=== PATIENT | female | born 1960 | race African-American/Black ===

== ENCOUNTER 2016-11-25 15:03 | Inpatient (IN) | payer OTHER ==
[~2016-11-25] VITALS: Ht 167.6 cm; Wt 61.2 kg
[2016-11-25 20:21] LABS: BASOPHILS % 0.8 % (0.0-2.0); EOSINOPHILS % 2.2 % (0.0-5.0); HEMATOCRIT. 37.8 % (36.0-48.0); HEMOGLOBIN. 12.8 g/dL (12.0-16.0); LYMPHOCYTES % 32.4 % (20.0-50.0); MEAN CORPUSCULAR HEMOGLOBIN 33.3 pg (28.0-32.0); MEAN CORPUSCULAR VOLUME 98.7 fL (81.0-99.0); MONOCYTES % 9.7 % (2.0-8.0); NEUTROPHILS % 54.9 % (40.0-76.0); PLATELET 112 x1000/uL (130-400); RED BLOOD CELL COUNT 3.83 mill/uL (4.2-5.4); RED CELL DISTRIBUTION WIDTH 14.2 % (11.6-14.6)
[2016-11-25 20:27] LABS: CHLORIDE 111 mEq/L (98-107)
[2016-11-25 20:28] LABS: CLARITY URINE CLOUDY (CLEAR); COLOR URINE DARK YELLOW (YELLOW); GLUCOSE URINE NEGATIVE (NEGATIVE); KETONES URINE NEGATIVE (NEGATIVE); LEUKOCYTE ESTERASE URINE 3+ (NEGATIVE); NITRITE URINE NEGATIVE (NEGATIVE); OCCULT BLOOD URINE NEGATIVE (NEGATIVE); PH URINE 6.5 (4.5-8.0); PROTEIN URINE TRACE (NEGATIVE); SPECIFIC GRAVITY URINE 1.022 (1.005-1.030)
[2016-11-25 20:36] LABS: CARBON DIOXIDE 24 mEq/L (21-32); ETHANOL BLOOD 196 mg/dL
[2016-11-25 20:39] LABS: *AMPHETAMINES SCREEN URINE NEGATIVE (NEGATIVE); *BARBITURATES SCREEN URINE NEGATIVE (NEGATIVE); *BENZODIAZEPINES SCREEN URINE NEGATIVE (NEGATIVE); *COCAINE SCREEN URINE NEGATIVE (NEGATIVE); CANNABINOID URINE SCREEN PRESUMTIVE POSITIVE (NEGATIVE); METHADONE URINE SCREEN NEGATIVE (NEGATIVE); OPIATES URINE SCREEN NEGATIVE (NEGATIVE); PHENCYCLIDINE URINE SCREEN NEGATIVE (NEGATIVE)
[2016-11-25] MEDS ORDERED: CEFTRIAXONE 1 G PREMIX 50 ML IV ONE (23:15)
[2016-11-26] MEDS: LORAZEPAM 2MG/ML CPJ IV NR ×2 (05:23→06:30)
[2016-11-26] MEDS ORDERED: FOLIC ACID 1 MG, THIAMINE HCL 100 MG, MVI, ADULT NO.1 10 ML in DEXTROSE 5% WATER 1,000 ML IV ONE ×8 (10:00→11:45)
[2016-11-26] MEDS ORDERED: SODIUM CHLORIDE 0.9% 1,000 ML IV ONE (10:00)
[2016-11-26] MEDS ORDERED: METRONIDAZOLE 500MG TABLET PO ONE (10:15)
[2016-11-26 10:33] LABS: AMMONIA 77 uMol/L (<32)
[2016-11-26] MEDS ORDERED: IPRATROPIUM/ALBUTEROL 0.5-3(2.5)MG/3ML NEB INH PRN (13:45)
[2016-11-26] MEDS ORDERED: MAGNESIUM/ALUMINUM HYDROXIDE/SIMETHICONE 30ML UDC PO PRN (13:45)
[2016-11-26] MEDS ORDERED: ONDANSETRON HCL 4MG/2ML VIAL IV PRN (13:45)
[2016-11-26 14:59] LABS: CREATINE KINASE 91 IU/L (26-192); CREATINE KINASE MB FRACTION 1.8 ng/mL (0.5-3.6); TROPONIN I < 0.02 ng/mL (0.00-0.04)
[2016-11-26 15:33] VITALS: BP 173/113
[2016-11-26] MEDS ORDERED: ROCEPHIN IVPB XX SCH (16:30)
[2016-11-26] MEDS: SODIUM CHLORIDE 0.9% 1,000 ML IV SCH (18:06)
[2016-11-26 20:00] VITALS: BP 166/112
[2016-11-26] MEDS: ACETAMINOPHEN 325MG TABLET PO PRN (20:21)
[2016-11-26] MEDS: CLONIDINE 0.1MG TABLET PO PRN (20:22)
[2016-11-26] MEDS: CHLORDIAZEPOXIDE 25MG CAPSULE PO SCH (21:33)
[2016-11-26 23:36] LABS: CREATINE KINASE 90 IU/L (26-192); CREATINE KINASE MB FRACTION 1.3 ng/mL (0.5-3.6); TROPONIN I < 0.02 ng/mL (0.00-0.04)
[2016-11-27] VITALS: BP 144/98
[2016-11-27] MEDS ORDERED: CEFTRIAXONE 1 G PREMIX 50 ML IV SCH
[2016-11-27 04:00] VITALS: BP 138/89
[2016-11-27] MEDS: CHLORDIAZEPOXIDE 25MG CAPSULE PO SCH ×3 (06:04→21:18)
[2016-11-27] MEDS: SODIUM CHLORIDE 0.9% 1,000 ML IV SCH ×2 (06:17→21:04)
[2016-11-27 07:11] LABS: HEMATOCRIT. 31.5 % (36.0-48.0); HEMOGLOBIN. 10.8 g/dL (12.0-16.0); MEAN CORPUSCULAR HEMOGLOBIN 33.5 pg (28.0-32.0); MEAN CORPUSCULAR VOLUME 97.9 fL (81.0-99.0); MEAN PLATELET VOLUME 10.6 fl (7.4-10.4); PLATELET 67 x1000/uL (130-400); RED BLOOD CELL COUNT 3.22 mill/uL (4.2-5.4); RED CELL DISTRIBUTION WIDTH 13.7 % (11.6-14.6)
[2016-11-27 07:45] LABS: CARBON DIOXIDE 25 mEq/L (21-32); CHLORIDE 104 mEq/L (98-107); HDL CHOLESTEROL 39 mg/dL (40-59); LDL CHOLESTEROL 34 mg/dL (5-100)
[2016-11-27] MEDS: THIAMINE HCL 100MG TABLET PO SCH (08:14)
[2016-11-27] MEDS: MULTIVITAMINS,THER W-MINERALS TABLET PO SCH (08:14)
[2016-11-27] MEDS: FOLIC ACID 1MG TABLET PO SCH (08:14)
[2016-11-27] MEDS: CLONIDINE 0.1MG TABLET PO PRN (08:15)
[2016-11-27 08:30] VITALS: BP 167/107
[2016-11-27] MEDS ORDERED: POTASSIUM CHLORIDE 20MEQ TABLET SR PO SCH ×2 (08:45→12:45)
[2016-11-27 08:54] LABS: PLATELET ESTIMATE DECREASED
[2016-11-27] MEDS: ACETAMINOPHEN 325MG TABLET PO PRN (09:07)
[2016-11-27] MEDS ORDERED: MAGNESIUM 2 G PREMIX 50 ML IV SCH (11:00)
[2016-11-27 12:28] VITALS: BP 149/68
[2016-11-27] MEDS ORDERED: SODIUM CHLORIDE 0.9% 10ML VIAL ONE (13:04)
[2016-11-27] MEDS ORDERED: IOHEXOL-300 100 ML BOTTLE ONE (13:04)
[2016-11-27 16:35] VITALS: BP 124/84
[2016-11-27 20:00] VITALS: BP 130/85
[2016-11-27] MEDS: CEFTRIAXONE 1 G PREMIX 50 ML IV SCH (21:10)
[2016-11-27 21:11] LABS: HAPTOGLOBIN 31 mg/dL (30-200); TOTAL IRON BINDING CAPACITY 314 ug/dL (250-450)
[2016-11-27 21:19] LABS: FERRITIN 159 ng/mL (10-291)
[2016-11-27 21:20] LABS: CARCINO EMBRYONIC ANTIGEN 3.3 ng/ml
[2016-11-27 21:31] LABS: HEPATITIS B SURFACE ANTIGEN NEGATIVE
[2016-11-27 21:34] LABS: VITAMIN B12 SERUM 970 pg/mL (211-911)
[2016-11-27 21:36] LABS: FOLIC ACID (FOLATE) SERUM > 20.00 ng/mL (>5.38)
[2016-11-27 21:59] LABS: HEPATITIS B CORE AB IGM NEGATIVE
[2016-11-27 22:00] LABS: HEPATITIS A AB IGM NEGATIVE (NEGATIVE)
[2016-11-28] VITALS: BP 130/77
[2016-11-28 04:00] VITALS: BP 148/82
[2016-11-28] MEDS: CHLORDIAZEPOXIDE 25MG CAPSULE PO SCH ×3 (06:00→22:00)
[2016-11-28] MEDS: CLONIDINE 0.1MG TABLET PO PRN (07:55)
[2016-11-28] MEDS: FOLIC ACID 1MG TABLET PO SCH (07:55)
[2016-11-28] MEDS: MULTIVITAMINS,THER W-MINERALS TABLET PO SCH (07:55)
[2016-11-28] MEDS: THIAMINE HCL 100MG TABLET PO SCH (07:55)
[2016-11-28] MEDS: SODIUM CHLORIDE 0.9% 1,000 ML IV SCH ×2 (07:59→21:41)
[2016-11-28 08:00] VITALS: BP 147/110
[2016-11-28 12:00] VITALS: BP 148/88
[2016-11-28 12:12] LABS: BASOPHILS % 0.4 % (0.0-2.0); EOSINOPHILS % 2.7 % (0.0-5.0); HEMATOCRIT. 31.8 % (36.0-48.0); HEMOGLOBIN. 10.8 g/dL (12.0-16.0); LYMPHOCYTES % 25.9 % (20.0-50.0); MEAN CORPUSCULAR HEMOGLOBIN 33.5 pg (28.0-32.0); MEAN CORPUSCULAR VOLUME 98.5 fL (81.0-99.0); MEAN PLATELET VOLUME 9.9 fl (7.4-10.4); MONOCYTES % 13.2 % (2.0-8.0); NEUTROPHILS % 57.8 % (40.0-76.0); PLATELET 61 x1000/uL (130-400); RED BLOOD CELL COUNT 3.23 mill/uL (4.2-5.4); RED CELL DISTRIBUTION WIDTH 13.9 % (11.6-14.6)
[2016-11-28 12:40] LABS: CARBON DIOXIDE 26 mEq/L (21-32); CHLORIDE 109 mEq/L (98-107)
[2016-11-28] MEDS: ACETAMINOPHEN 325MG TABLET PO PRN (13:37)
[2016-11-28 20:00] VITALS: BP 135/84
[2016-11-28] MEDS ORDERED: POTASSIUM CHLORIDE 20MEQ TABLET SR PO NR (20:00)
[2016-11-28] MEDS: CEFTRIAXONE 1 G PREMIX 50 ML IV SCH (21:53)
[2016-11-29] VITALS: BP 151/104
[2016-11-29] MEDS: CLONIDINE 0.1MG TABLET PO PRN (01:46)
[2016-11-29 04:00] VITALS: BP 130/83
[2016-11-29] MEDS: CHLORDIAZEPOXIDE 25MG CAPSULE PO SCH ×3 (05:21→22:00)
[2016-11-29 06:48] LABS: CARBON DIOXIDE 22 mEq/L (21-32); CHLORIDE 109 mEq/L (98-107)
[2016-11-29 07:05] LABS: BASOPHILS % 0.4 % (0.0-2.0); HEMATOCRIT. 31.7 % (36.0-48.0); HEMOGLOBIN. 10.6 g/dL (12.0-16.0); LYMPHOCYTES % 27.1 % (20.0-50.0); MEAN CORPUSCULAR HEMOGLOBIN 33.5 pg (28.0-32.0); MEAN CORPUSCULAR VOLUME 100.1 fL (81.0-99.0); MONOCYTES % 12.7 % (2.0-8.0); NEUTROPHILS % 56.8 % (40.0-76.0); PLATELET 63 x1000/uL (130-400); RED BLOOD CELL COUNT 3.16 mill/uL (4.2-5.4)
[2016-11-29 08:00] VITALS: BP 128/89
[2016-11-29] MEDS: MULTIVITAMINS,THER W-MINERALS TABLET PO SCH (11:06)
[2016-11-29] MEDS: THIAMINE HCL 100MG TABLET PO SCH (11:06)
[2016-11-29] MEDS: FOLIC ACID 1MG TABLET PO SCH (11:06)
[2016-11-29 12:43] VITALS: BP 133/87
[2016-11-29] MEDS: LACTULOSE 20G/30ML UDC PO SCH ×2 (13:13→22:00)
[2016-11-29] MEDS ORDERED: L25 PO (15:55)
[2016-11-29] MEDS ORDERED: THIA100T72 PO (15:55)
[2016-11-29] MEDS ORDERED: FOLI-43 PO (15:55)
[2016-11-29 16:00] VITALS: BP 153/96
[2016-11-29] MEDS ORDERED: MAGNESIUM 2 G PREMIX 50 ML IV ONE (16:00)
[2016-11-29] MEDS ORDERED: MAGNESIUM SULFATE 3 GM in DEXT 5% WATER 94 ML IV NR (16:00)
[2016-11-29 20:00] VITALS: BP 132/93
[2016-11-29 21:31] LABS: HCG SCREEN NEGATIVE
[2016-11-29 21:34] LABS: AMMONIA 48 uMol/L (<32)
[2016-11-29 21:48] LABS: TROPONIN I < 0.02 ng/mL (0.00-0.04)
[2016-11-29] MEDS: CEFTRIAXONE 1 G PREMIX 50 ML IV SCH (21:48)
[2016-11-30 02:53] VITALS: BP 132/93
[2016-11-30 05:38] LABS: HEMATOCRIT 31.1 % (36.0-48.0); HEMOGLOBIN 10.4 g/dL (12.0-16.0); MEAN CORPUSCULAR HEMOGLOBIN 33.4 pg (28.0-32.0); MEAN CORPUSCULAR VOLUME 99.8 fL (81.0-99.0); PLATELET 59 x1000/uL (130-400); RED BLOOD CELL COUNT 3.12 mill/uL (4.2-5.4); RED CELL DISTRIBUTION WIDTH 14.2 % (11.6-14.6)
[2016-11-30] MEDS: LACTULOSE 20G/30ML UDC PO SCH ×2 (06:00→12:45)
[2016-11-30] MEDS: CHLORDIAZEPOXIDE 25MG CAPSULE PO SCH ×2 (06:18→14:16)
[2016-11-30 07:41] LABS: CHLORIDE 110 mEq/L (98-107)
[2016-11-30 07:48] LABS: AMMONIA 66 uMol/L (<32)
[2016-11-30 08:00] VITALS: BP 154/100
[2016-11-30 08:26] LABS: CARBON DIOXIDE 23 mEq/L (21-32)
[2016-11-30] MEDS: THIAMINE HCL 100MG TABLET PO SCH (09:57)
[2016-11-30] MEDS: FOLIC ACID 1MG TABLET PO SCH (09:57)
[2016-11-30] MEDS: MULTIVITAMINS,THER W-MINERALS TABLET PO SCH (09:57)
[2016-11-30 11:45] VITALS: BP 137/86
[2016-11-30 14:26] VITALS: BP 137/86
== END 2016-11-30 16:15 | DRG 279 ==
LOC: ER 15:23 → 5WST 11-26 11:47 → ENRESERV 11-26 12:49 → CANBEDREQ 11-26 16:15 → 5WST 11-28 21:15
PROVIDERS: ADMIT Internal Medicine; ATTEND Internal Medicine
DX: K72.90 Hepatic failure, unspecified without coma (principal); D69.6 Thrombocytopenia, unspecified; N39.0 Urinary tract infection, site not specified; I10 Essential (primary) hypertension; D63.8 Anemia in other chronic diseases classified elsewhere; D72.819 Decreased white blood cell count, unspecified; F10.129 Alcohol abuse with intoxication, unspecified; Y90.6 Blood alcohol level of 120-199 mg/100 ml; K70.30 Alcoholic cirrhosis of liver without ascites; E87.6 Hypokalemia; K80.20 Calculus of gallbladder without cholecystitis without obstruction; Z59.0 Homelessness
CPT/HCPCS: 36415; 70450; 74177; 76700; 80048; 80053; 80061; 80305; 80307; 80329; 81001; 82140; 82270; 82378; 82550; 82553; 82607; 82728; 82746; 83010; 83540; 83550; 83735; 83930; 84443; 84484; 84703; 85025; 85027; 85044; 86705; 86709; 86803; 87186; 87340; 93005; 93970; 96361; 96365; 96375; 97162; 97166; 99285; A4216; G0482; J0696; J2060; J3411; J3475; J3490; J7030; J7060; J7070; Q9967

== ENCOUNTER 2017-02-26 16:03 | Emergency (ER) | payer OTHER ==
[~2017-02-26] VITALS: Ht 167.6 cm; Wt 64.0 kg
[2017-02-26 20:46] LABS: BASOPHILS % 0.5 % (0.0-2.0); EOSINOPHILS % 2.8 % (0.0-5.0); HEMATOCRIT. 31.3 % (36.0-48.0); HEMOGLOBIN. 10.6 g/dL (12.0-16.0); LYMPHOCYTES % 39.3 % (20.0-50.0); MEAN CORPUSCULAR HEMOGLOBIN 31.5 pg (28.0-32.0); MEAN CORPUSCULAR VOLUME 92.7 fL (81.0-99.0); MEAN PLATELET VOLUME 8.8 fl (7.4-10.4); MONOCYTES % 13.2 % (2.0-8.0); NEUTROPHILS % 44.2 % (40.0-76.0); PLATELET 71 x1000/uL (130-400); RED BLOOD CELL COUNT 3.38 mill/uL (4.2-5.4); RED CELL DISTRIBUTION WIDTH 15.8 % (11.6-14.6)
[2017-02-26 20:50] LABS: *AMPHETAMINES SCREEN URINE NEGATIVE (NEGATIVE); *BARBITURATES SCREEN URINE NEGATIVE (NEGATIVE); *BENZODIAZEPINES SCREEN URINE NEGATIVE (NEGATIVE); *COCAINE SCREEN URINE NEGATIVE (NEGATIVE); CANNABINOID URINE SCREEN PRESUMTIVE POSITIVE (NEGATIVE); METHADONE URINE SCREEN NEGATIVE (NEGATIVE); OPIATES URINE SCREEN NEGATIVE (NEGATIVE); PHENCYCLIDINE URINE SCREEN NEGATIVE (NEGATIVE)
[2017-02-26 20:51] LABS: CHLORIDE 114 mEq/L (98-107)
[2017-02-26 20:57] LABS: CARBON DIOXIDE 25 mEq/L (21-32)
[2017-02-26 20:58] LABS: ETHANOL BLOOD 145 mg/dL
[2017-02-26] MEDS ORDERED: POTASSIUM CHLORIDE 20MEQ TABLET SR PO ONE (21:15)
[2017-02-27 11:05] VITALS: BP 133/82
== END 2017-02-27 12:20 | disposition home or self-care (01) ==
LOC: ER 16:03
DX: R45.851 Suicidal ideations (principal); F20.9 Schizophrenia, unspecified; I10 Essential (primary) hypertension; F31.9 Bipolar disorder, unspecified
CPT/HCPCS: 36415; 80048; 80305; 80307; 80329; 85025; 99284; G0482; Z7610

== ENCOUNTER 2018-03-19 15:15 | Inpatient (IN) | payer OTHER ==
[~2018-03-19] VITALS: Ht 167.6 cm; Wt 72.1 kg
[2018-03-19] MEDS ORDERED: PANTOPRAZOLE 80 MG in SODIUM CHLORIDE 0.9% 100 ML IV STA (15:53)
[2018-03-19] MEDS ORDERED: PANTOPRAZOLE SODIUM 40 MG/VIAL IV STA (15:53)
[2018-03-19] MEDS ORDERED: SODIUM CHLORIDE 0.9% 1000ML BAG (SEPSIS BOLUS) IV ONE (16:00)
[2018-03-19 17:17] LABS: BASOPHILS % 0.6 % (0.0-2.0); CHLORIDE 109 mEq/L (98-107); EOSINOPHILS % 1.4 % (0.0-5.0); HEMATOCRIT. 28.6 % (36.0-48.0); HEMOGLOBIN. 9.1 g/dL (12.0-16.0); LYMPHOCYTES % 16.2 % (20.0-50.0); MEAN CORPUSCULAR HEMOGLOBIN 29.5 pg (28.0-32.0); MEAN CORPUSCULAR VOLUME 92.4 fL (81.0-99.0); MEAN PLATELET VOLUME 9.3 fl (7.4-10.4); MONOCYTES % 9.6 % (2.0-8.0); NEUTROPHILS % 72.2 % (40.0-76.0); PLATELET 239 x1000/uL (130-400); RED BLOOD CELL COUNT 3.09 mill/uL (4.2-5.4); RED CELL DISTRIBUTION WIDTH 20.7 % (11.6-14.6)
[2018-03-19 17:20] LABS: INR 1.6; PARTIAL THROMBOPLASTIN TIME 29.5 sec (23.4-31.0); PROTHROMBIN TIME 16.1 sec (9.1-11.1)
[2018-03-19] MEDS ORDERED: ONDANSETRON HCL 4MG/2ML INJ IV STA (19:01)
[2018-03-19] MEDS ORDERED: MORPHINE SULFATE 4 MG/ML CPJ (NOT FOR IM USE) IV STA (19:01)
[2018-03-19 22:00] VITALS: BP 158/98
[2018-03-20] VITALS (54 sets, daily range): BP systolic 96–221; BP diastolic 50–146
[2018-03-20] MEDS ORDERED: OCTREOTIDE 1,000 MCG in SODIUM CHLORIDE 0.9% 100 ML IV SCH (04:00)
[2018-03-20] MEDS ORDERED: PANTOPRAZOLE 80 MG in SODIUM CHLORIDE 0.9% 100 ML IV SCH (04:00)
[2018-03-20] MEDS: DEXT 5%/0.45% NACL KCL 20MEQ/L 1,000 ML IV SCH ×3 (05:00→20:42)
[2018-03-20] MEDS ORDERED: ONDANSETRON HCL 4MG/2ML INJ IV PRN (09:30)
[2018-03-20] MEDS: PANTOPRAZOLE SODIUM 40 MG/VIAL IV SCH ×2 (11:30→20:39)
[2018-03-20] MEDS ORDERED: BACTERIOSTATIC SODIUM CHLORIDE 0.9% 30ML VIAL IJ ONE (11:38)
[2018-03-20] MEDS ORDERED: SIMETHICONE 40 MG/0.6 ML 30ML ONE ×2 (11:38→13:15)
[2018-03-20] MEDS: OCTREOTIDE 1,000 MCG in SODIUM CHLORIDE 0.9% 98 ML IV SCH (11:39)
[2018-03-20] MEDS ORDERED: POTASSIUM CHLORIDE INJ 40 MEQ in DEXT 5% WATER 250 ML IV NR (12:00)
[2018-03-20] MEDS ORDERED: FENTANYL CITRATE/PF 50MCG/ML 2ML VIAL ONE (13:15)
[2018-03-20] MEDS ORDERED: MIDAZOLAM HCL 5 MG/5 ML VIAL ONE (13:15)
[2018-03-20] MEDS ORDERED: MIDAZOLAM HCL 5 MG/5 ML VIAL IV PRN (13:18)
[2018-03-20] MEDS ORDERED: VECURONIUM BROMIDE 10 MG/VIAL IV ONE (13:59)
[2018-03-20] MEDS ORDERED: PROPOFOL 10MG/ML 100ML 100 ML IV PRN (14:30)
[2018-03-20 15:12] LABS: BG BASE EXCESS -9.7 mmol/L (-2.0-2.0); BG CARBOXYHEMOGLOBIN 0.9 % (0.5-1.5); BG DEOXYHEMOGLOBIN 0.3 % (0.0-5.0); BG FRACTION INSPIRED OXYGEN 100; BG HCO3 ACT 15.7 mmol/L (22.0-26.0); BG METHEMOGLOBIN 0.8 % (0.0-1.5); BG OXYGEN SATURATION 99.7 % (92.0-98.5); BG PCO2 32.1 mmHg (35.0-45.0); BG PH 7.307 (7.350-7.450); BG PO2 286.8 mmHg (75.0-100.0); BG SAMPLE SITE RIGHT RADIAL; BG TIDAL VOLUME(mL) 450 mL; BG TOTAL HEMOGLOBIN 7.3 g/dL (12.0-18.0); BG VENT MODE VENT - A/C; BG VENT RATE 12 set
[2018-03-20 16:23] LABS: BASOPHILS % 0.5 % (0.0-2.0); EOSINOPHILS % 1.2 % (0.0-5.0); HEMATOCRIT. 21.7 % (36.0-48.0); LYMPHOCYTES % 10.8 % (20.0-50.0); MEAN CORPUSCULAR HEMOGLOBIN 29.1 pg (28.0-32.0); MEAN CORPUSCULAR VOLUME 94.4 fL (81.0-99.0); MEAN PLATELET VOLUME 8.7 fl (7.4-10.4); MONOCYTES % 8.7 % (2.0-8.0); NEUTROPHILS % 78.8 % (40.0-76.0); PLATELET 290 x1000/uL (130-400); RED BLOOD CELL COUNT 2.29 mill/uL (4.2-5.4); RED CELL DISTRIBUTION WIDTH 21.3 % (11.6-14.6)
[2018-03-20 16:26] LABS: CHLORIDE 110 mEq/L (98-107)
[2018-03-20 16:27] LABS: INR 1.9; PARTIAL THROMBOPLASTIN TIME 33.2 sec (23.4-31.0); PROTHROMBIN TIME 18.5 sec (9.1-11.1)
[2018-03-20 16:34] LABS: HEMOGLOBIN. 6.7 g/dL (12.0-16.0)
[2018-03-20 16:35] LABS: PHOSPHORUS 2.9 mg/dL (2.5-4.9)
[2018-03-20] MEDS ORDERED: MAGNESIUM 2 G PREMIX 50 ML IV NR (18:00)
[2018-03-20] MEDS ORDERED: MAGNESIUM 2 G PREMIX 50 ML IV SCH ×2 (18:00)
[2018-03-20] MEDS ORDERED: PIPERACILLIN/TAZ 3.375G PREMIX 50 ML IV SCH (18:00)
[2018-03-20 19:48] LABS: CLARITY URINE CLEAR (CLEAR); COLOR URINE DARK YELLOW (YELLOW); KETONES URINE NEGATIVE (NEGATIVE); LEUKOCYTE ESTERASE URINE NEGATIVE (NEGATIVE); NITRITE URINE NEGATIVE (NEGATIVE); OCCULT BLOOD URINE 1+ (NEGATIVE); PROTEIN URINE 1+ (NEGATIVE); SPECIFIC GRAVITY URINE 1.021 (1.005-1.030); UROBILINOGEN URINE 0.2 E.U./dL (0.2-1.0)
[2018-03-20] MEDS: PROPOFOL 10MG/ML 100ML 100 ML IV PRN (20:30)
[2018-03-20 20:37] LABS: *AMPHETAMINES SCREEN URINE NEGATIVE (NEGATIVE); *BARBITURATES SCREEN URINE NEGATIVE (NEGATIVE); *BENZODIAZEPINES SCREEN URINE PRESUMTIVE POSITIVE (NEGATIVE); *COCAINE SCREEN URINE NEGATIVE (NEGATIVE)
[2018-03-20 20:39] LABS: METHADONE URINE SCREEN NEGATIVE (NEGATIVE); OPIATES URINE SCREEN PRESUMTIVE POSITIVE (NEGATIVE)
[2018-03-20] MEDS: PIPERACILLIN/TAZ 3.375G PREMIX 50 ML IV SCH (20:39)
[2018-03-20 20:40] LABS: CANNABINOID URINE SCREEN PRESUMTIVE POSITIVE (NEGATIVE); PHENCYCLIDINE URINE SCREEN NEGATIVE (NEGATIVE)
[2018-03-20] MEDS: IPRATROPIUM/ALBUTEROL 0.5-3(2.5)MG/3ML NEB HHN SCH (20:58)
[2018-03-21] VITALS (68 sets, daily range): BP systolic 107–172; BP diastolic 75–104
[2018-03-21 02:06] LABS: HEMATOCRIT 42.2 % (36.0-48.0); HEMOGLOBIN 13.6 g/dL (12.0-16.0)
[2018-03-21] MEDS: IPRATROPIUM/ALBUTEROL 0.5-3(2.5)MG/3ML NEB HHN SCH ×4 (02:09→16:29)
[2018-03-21] MEDS: DEXT 5%/0.45% NACL KCL 20MEQ/L 1,000 ML IV SCH ×2 (04:00→12:00)
[2018-03-21] MEDS: PIPERACILLIN/TAZ 3.375G PREMIX 50 ML IV SCH ×3 (04:51→19:46)
[2018-03-21] MEDS: OCTREOTIDE 1,000 MCG in SODIUM CHLORIDE 0.9% 98 ML IV SCH (05:08)
[2018-03-21] MEDS: PROPOFOL 10MG/ML 100ML 100 ML IV PRN ×3 (05:09→18:57)
[2018-03-21 05:24] LABS: BASOPHILS % 0.6 % (0.0-2.0); EOSINOPHILS % 1.4 % (0.0-5.0); HEMATOCRIT. 30.6 % (36.0-48.0); HEMOGLOBIN. 10.3 g/dL (12.0-16.0); MEAN CORPUSCULAR HEMOGLOBIN 31.1 pg (28.0-32.0); MEAN CORPUSCULAR VOLUME 92.8 fL (81.0-99.0); MEAN PLATELET VOLUME 9.3 fl (7.4-10.4); PLATELET 142 x1000/uL (130-400)
[2018-03-21 05:27] LABS: CHLORIDE 110 mEq/L (98-107)
[2018-03-21 05:42] LABS: AMYLASE 71 IU/L (25-115)
[2018-03-21] MEDS: PANTOPRAZOLE SODIUM 40 MG/VIAL IV SCH ×2 (09:19→21:05)
[2018-03-21 09:33] LABS: BG BASE EXCESS -6.5 mmol/L (-2.0-2.0); BG CARBOXYHEMOGLOBIN 0.2 % (0.5-1.5); BG DEOXYHEMOGLOBIN 0.9 % (0.0-5.0); BG FRACTION INSPIRED OXYGEN 50; BG HCO3 ACT 16.3 mmol/L (22.0-26.0); BG METHEMOGLOBIN 0.3 % (0.0-1.5); BG OXYGEN SATURATION 99.1 % (92.0-98.5); BG OXYHEMOGLOBIN 98.6 % (94.0-97.0); BG PCO2 24.4 mmHg (35.0-45.0); BG PH 7.443 (7.350-7.450); BG PO2 216.1 mmHg (75.0-100.0); BG SAMPLE SITE RIGHT RADIAL; BG TIDAL VOLUME(mL) 500 mL; BG TOTAL HEMOGLOBIN 9.8 g/dL (12.0-18.0); BG VENT MODE VENT - A/C; BG VENT RATE 12 set
[2018-03-21 10:19] LABS: INR 1.5; PARTIAL THROMBOPLASTIN TIME 29.4 sec (23.4-31.0); PROTHROMBIN TIME 15.4 sec (9.1-11.1)
[2018-03-21 12:39] LABS: HEMATOCRIT 27.7 % (36.0-48.0); HEMOGLOBIN 9.4 g/dL (12.0-16.0)
[2018-03-21] MEDS ORDERED: FUROSEMIDE 40MG TABLET PO NR (12:45)
[2018-03-21] MEDS ORDERED: LIDOCAINE HCL 1% 20ML VIAL (Pyxis) INJ ONE (13:35)
[2018-03-21] MEDS ORDERED: SODIUM BICARBONATE 4% (2.4MEQ) 5ML VIAL IV ONE (13:35)
[2018-03-21] MEDS ORDERED: FUROSEMIDE 40MG/4ML VIAL IVP NR (17:00)
[2018-03-21] MEDS ORDERED: PHYTONADIONE 10MG/ML AMP SUBCUT NR (20:00)
[2018-03-21 20:22] LABS: HEMATOCRIT 30.2 % (36.0-48.0); HEMOGLOBIN 10.5 g/dL (12.0-16.0)
[2018-03-22] VITALS (44 sets, daily range): BP systolic 96–167; BP diastolic 54–107
[2018-03-22] MEDS: PROPOFOL 10MG/ML 100ML 100 ML IV PRN ×2 (00:29→10:55)
[2018-03-22 01:45] LABS: HEMOGLOBIN 12.7 g/dL (12.0-16.0)
[2018-03-22] MEDS: DEXT 5%/0.45% NACL KCL 20MEQ/L 1,000 ML IV SCH ×4 (01:45→19:54)
[2018-03-22] MEDS: IPRATROPIUM/ALBUTEROL 0.5-3(2.5)MG/3ML NEB HHN SCH ×4 (02:02→20:30)
[2018-03-22] MEDS: OCTREOTIDE 1,000 MCG in SODIUM CHLORIDE 0.9% 98 ML IV SCH ×2 (02:18→21:01)
[2018-03-22] MEDS: PIPERACILLIN/TAZ 3.375G PREMIX 50 ML IV SCH ×3 (04:44→19:51)
[2018-03-22 06:41] LABS: HEMATOCRIT. 32.2 % (36.0-48.0); HEMOGLOBIN. 10.6 g/dL (12.0-16.0); MEAN CORPUSCULAR HEMOGLOBIN 30.7 pg (28.0-32.0); MEAN CORPUSCULAR VOLUME 92.9 fL (81.0-99.0); MEAN PLATELET VOLUME 9.1 fl (7.4-10.4); PLATELET 100 x1000/uL (130-400); RED BLOOD CELL COUNT 3.46 mill/uL (4.2-5.4); RED CELL DISTRIBUTION WIDTH 19.2 % (11.6-14.6)
[2018-03-22 06:51] LABS: INR 1.7; PROTHROMBIN TIME 17.3 sec (9.1-11.1)
[2018-03-22 07:06] LABS: CHLORIDE 109 mEq/L (98-107)
[2018-03-22 08:50] LABS: BG BASE EXCESS -5.3 mmol/L (-2.0-2.0); BG CARBOXYHEMOGLOBIN 0.3 % (0.5-1.5); BG DEOXYHEMOGLOBIN 1.6 % (0.0-5.0); BG FRACTION INSPIRED OXYGEN 30; BG HCO3 ACT 17.3 mmol/L (22.0-26.0); BG METHEMOGLOBIN 0.3 % (0.0-1.5); BG OXYGEN SATURATION 98.4 % (92.0-98.5); BG OXYHEMOGLOBIN 97.8 % (94.0-97.0); BG PCO2 24.8 mmHg (35.0-45.0); BG PH 7.461 (7.350-7.450); BG PO2 127.1 mmHg (75.0-100.0); BG SAMPLE SITE RIGHT RADIAL; BG TIDAL VOLUME(mL) 500 mL; BG TOTAL HEMOGLOBIN 10.3 g/dL (12.0-18.0); BG VENT MODE VENT - A/C; BG VENT RATE 12 set
[2018-03-22] MEDS ORDERED: PHYTONADIONE 10MG/ML AMP SUBCUT NR (09:00)
[2018-03-22] MEDS: PANTOPRAZOLE SODIUM 40 MG/VIAL IV SCH ×2 (09:21→21:07)
[2018-03-22 10:45] LABS: PLATELET ESTIMATE SLIGHTLY DECREASED
[2018-03-22] MEDS ORDERED: PROPOFOL 10MG/ML 100ML 100 ML IV PRN (11:30)
[2018-03-22 12:22] LABS: BASOPHILS % 0.7 % (0.0-2.0); EOSINOPHILS % 1.2 % (0.0-5.0); HEMATOCRIT. 27.4 % (36.0-48.0); HEMOGLOBIN. 9.4 g/dL (12.0-16.0); LYMPHOCYTES % 13.3 % (20.0-50.0); MEAN CORPUSCULAR HEMOGLOBIN 30.6 pg (28.0-32.0); MEAN CORPUSCULAR VOLUME 89.6 fL (81.0-99.0); MONOCYTES % 11.2 % (2.0-8.0); NEUTROPHILS % 73.6 % (40.0-76.0); PLATELET 95 x1000/uL (130-400); RED BLOOD CELL COUNT 3.06 mill/uL (4.2-5.4)
[2018-03-22 19:17] LABS: HEMATOCRIT 32.9 % (36.0-48.0); HEMOGLOBIN 10.3 g/dL (12.0-16.0)
[2018-03-23] VITALS (25 sets, daily range): BP systolic 116–200; BP diastolic 68–120
[2018-03-23 01:06] LABS: HEMATOCRIT 32.2 % (36.0-48.0); HEMOGLOBIN 10.6 g/dL (12.0-16.0)
[2018-03-23] MEDS: IPRATROPIUM/ALBUTEROL 0.5-3(2.5)MG/3ML NEB HHN SCH ×4 (02:19→20:10)
[2018-03-23] MEDS: DEXT 5%/0.45% NACL KCL 20MEQ/L 1,000 ML IV SCH ×3 (04:26→20:51)
[2018-03-23] MEDS: PIPERACILLIN/TAZ 3.375G PREMIX 50 ML IV SCH ×3 (04:26→20:52)
[2018-03-23 06:31] LABS: CHLORIDE 110 mEq/L (98-107)
[2018-03-23 06:33] LABS: HEMATOCRIT 29.4 % (36.0-48.0); HEMOGLOBIN 9.9 g/dL (12.0-16.0)
[2018-03-23 08:07] LABS: BG BASE EXCESS -7.2 mmol/L (-2.0-2.0); BG CARBOXYHEMOGLOBIN 0.3 % (0.5-1.5); BG DEOXYHEMOGLOBIN 1.4 % (0.0-5.0); BG FRACTION INSPIRED OXYGEN 30; BG HCO3 ACT 15.5 mmol/L (22.0-26.0); BG METHEMOGLOBIN 0.4 % (0.0-1.5); BG OXYGEN SATURATION 98.6 % (92.0-98.5); BG OXYHEMOGLOBIN 97.9 % (94.0-97.0); BG PCO2 22.7 mmHg (35.0-45.0); BG PH 7.451 (7.350-7.450); BG PO2 150.8 mmHg (75.0-100.0); BG SAMPLE SITE RIGHT RADIAL; BG TIDAL VOLUME(mL) 500 mL; BG TOTAL HEMOGLOBIN 9.4 g/dL (12.0-18.0); BG VENT MODE VENT - A/C; BG VENT RATE 12 set
[2018-03-23] MEDS: PANTOPRAZOLE SODIUM 40 MG/VIAL IV SCH ×2 (09:00→21:26)
[2018-03-23] MEDS ORDERED: FENTANYL CITRATE/PF 50MCG/ML 2ML VIAL ONE (10:09)
[2018-03-23] MEDS ORDERED: MIDAZOLAM HCL 5 MG/5 ML VIAL ONE (10:10)
[2018-03-23] MEDS ORDERED: SIMETHICONE 40 MG/0.6 ML 30ML ONE (10:11)
[2018-03-23] MEDS ORDERED: HYDRALAZINE 20MG/ML VIAL IV STA (20:40)
[2018-03-23] MEDS: PROPOFOL 10MG/ML 100ML 100 ML IV PRN (21:20)
[2018-03-23] MEDS: OCTREOTIDE 1,000 MCG in SODIUM CHLORIDE 0.9% 98 ML IV SCH (21:21)
[2018-03-24] VITALS (40 sets, daily range): BP systolic 102–143; BP diastolic 72–93
[2018-03-24 01:15] LABS: HEMATOCRIT 33.6 % (36.0-48.0); HEMOGLOBIN 11.1 g/dL (12.0-16.0)
[2018-03-24] MEDS: IPRATROPIUM/ALBUTEROL 0.5-3(2.5)MG/3ML NEB HHN SCH ×4 (01:32→20:29)
[2018-03-24] MEDS: PROPOFOL 10MG/ML 100ML 100 ML IV PRN ×3 (03:30→17:41)
[2018-03-24] MEDS: DEXT 5%/0.45% NACL KCL 20MEQ/L 1,000 ML IV SCH ×3 (04:08→21:06)
[2018-03-24] MEDS: PIPERACILLIN/TAZ 3.375G PREMIX 50 ML IV SCH ×3 (04:20→21:07)
[2018-03-24] MEDS: SUCRALFATE 1 G/10 ML UDC PO SCH ×2 (06:00)
[2018-03-24 06:03] LABS: BASOPHILS % 0.9 % (0.0-2.0); HEMATOCRIT. 30.9 % (36.0-48.0); HEMOGLOBIN. 10.4 g/dL (12.0-16.0); LYMPHOCYTES % 14.8 % (20.0-50.0); MEAN CORPUSCULAR HEMOGLOBIN 30.6 pg (28.0-32.0); MEAN CORPUSCULAR VOLUME 90.3 fL (81.0-99.0); MEAN PLATELET VOLUME 9.7 fl (7.4-10.4); MONOCYTES % 11.2 % (2.0-8.0); NEUTROPHILS % 71.1 % (40.0-76.0); PLATELET 138 x1000/uL (130-400); RED BLOOD CELL COUNT 3.42 mill/uL (4.2-5.4); RED CELL DISTRIBUTION WIDTH 19.6 % (11.6-14.6)
[2018-03-24 06:05] LABS: CHLORIDE 111 mEq/L (98-107)
[2018-03-24 07:32] LABS: BG BASE EXCESS -7.8 mmol/L (-2.0-2.0); BG CARBOXYHEMOGLOBIN 0.2 % (0.5-1.5); BG DEOXYHEMOGLOBIN 1.8 % (0.0-5.0); BG HCO3 ACT 14.7 mmol/L (22.0-26.0); BG METHEMOGLOBIN 0.4 % (0.0-1.5); BG OXYGEN SATURATION 98.2 % (92.0-98.5); BG OXYHEMOGLOBIN 97.6 % (94.0-97.0); BG PCO2 22.1 mmHg (35.0-45.0); BG PH 7.441 (7.350-7.450); BG PO2 118.5 mmHg (75.0-100.0); BG SAMPLE SITE RIGHT RADIAL; BG TIDAL VOLUME(mL) 500 mL; BG TOTAL HEMOGLOBIN 10.6 g/dL (12.0-18.0); BG VENT MODE VENT - A/C; BG VENT RATE 12 set
[2018-03-24] MEDS: HYDRALAZINE 20MG/ML VIAL IV SCH ×4 (07:48→18:00)
[2018-03-24] MEDS: PANTOPRAZOLE SODIUM 40 MG/VIAL IV SCH (08:46)
[2018-03-24] MEDS: OCTREOTIDE 1,000 MCG in SODIUM CHLORIDE 0.9% 98 ML IV SCH (11:24)
[2018-03-24 12:59] LABS: HEMATOCRIT 33.3 % (36.0-48.0); HEMOGLOBIN 10.9 g/dL (12.0-16.0)
[2018-03-25] VITALS (11 sets, daily range): BP systolic 106–126; BP diastolic 68–94
[2018-03-25] MEDS: PROPOFOL 10MG/ML 100ML 100 ML IV PRN (00:07)
[2018-03-25] MEDS: PANTOPRAZOLE SODIUM 40 MG/VIAL IV SCH ×3 (00:12→22:04)
[2018-03-25] MEDS: HYDRALAZINE 20MG/ML VIAL IV SCH ×4 (00:12→18:23)
[2018-03-25] MEDS: IPRATROPIUM/ALBUTEROL 0.5-3(2.5)MG/3ML NEB HHN SCH ×4 (02:29→19:47)
[2018-03-25] MEDS: PIPERACILLIN/TAZ 3.375G PREMIX 50 ML IV SCH ×3 (04:37→20:24)
[2018-03-25] MEDS: DEXT 5%/0.45% NACL KCL 20MEQ/L 1,000 ML IV SCH ×3 (04:37→20:23)
[2018-03-25 05:53] LABS: BASOPHILS % 0.7 % (0.0-2.0); EOSINOPHILS % 2.9 % (0.0-5.0); HEMATOCRIT. 32.1 % (36.0-48.0); HEMOGLOBIN. 10.9 g/dL (12.0-16.0); LYMPHOCYTES % 13.3 % (20.0-50.0); MEAN CORPUSCULAR HEMOGLOBIN 30.5 pg (28.0-32.0); MEAN PLATELET VOLUME 9.5 fl (7.4-10.4); MONOCYTES % 11.4 % (2.0-8.0); NEUTROPHILS % 71.7 % (40.0-76.0); PLATELET 165 x1000/uL (130-400); RED BLOOD CELL COUNT 3.57 mill/uL (4.2-5.4); RED CELL DISTRIBUTION WIDTH 19.4 % (11.6-14.6)
[2018-03-25 05:58] LABS: CHLORIDE 111 mEq/L (98-107)
[2018-03-25] MEDS: OCTREOTIDE 1,000 MCG in SODIUM CHLORIDE 0.9% 98 ML IV SCH ×2 (11:00→23:56)
[2018-03-26] VITALS (19 sets, daily range): BP systolic 106–150; BP diastolic 69–106
[2018-03-26] MEDS: LORAZEPAM 2MG/ML CPJ IV PRN ×2 (00:04→20:58)
[2018-03-26] MEDS: HYDRALAZINE 20MG/ML VIAL IV SCH ×4 (00:08→18:00)
[2018-03-26] MEDS: IPRATROPIUM/ALBUTEROL 0.5-3(2.5)MG/3ML NEB HHN SCH ×4 (01:48→20:23)
[2018-03-26] MEDS: DEXT 5%/0.45% NACL KCL 20MEQ/L 1,000 ML IV SCH ×3 (04:19→20:59)
[2018-03-26] MEDS: PIPERACILLIN/TAZ 3.375G PREMIX 50 ML IV SCH ×3 (04:19→21:00)
[2018-03-26 05:37] LABS: BASOPHILS % 0.6 % (0.0-2.0); EOSINOPHILS % 1.3 % (0.0-5.0); HEMATOCRIT. 31.9 % (36.0-48.0); HEMOGLOBIN. 10.3 g/dL (12.0-16.0); LYMPHOCYTES % 13.4 % (20.0-50.0); MEAN CORPUSCULAR HEMOGLOBIN 29.9 pg (28.0-32.0); MEAN PLATELET VOLUME 9.3 fl (7.4-10.4); MONOCYTES % 12.1 % (2.0-8.0); NEUTROPHILS % 72.6 % (40.0-76.0); PLATELET 183 x1000/uL (130-400); RED BLOOD CELL COUNT 3.46 mill/uL (4.2-5.4); RED CELL DISTRIBUTION WIDTH 19.6 % (11.6-14.6)
[2018-03-26 05:44] LABS: CHLORIDE 112 mEq/L (98-107)
[2018-03-26 07:50] LABS: BG BASE EXCESS -9.5 mmol/L (-2.0-2.0); BG CARBOXYHEMOGLOBIN 0.3 % (0.5-1.5); BG DEOXYHEMOGLOBIN 1.3 % (0.0-5.0); BG HCO3 ACT 12.9 mmol/L (22.0-26.0); BG METHEMOGLOBIN 0.2 % (0.0-1.5); BG OXYGEN SATURATION 98.7 % (92.0-98.5); BG OXYHEMOGLOBIN 98.2 % (94.0-97.0); BG PCO2 19.7 mmHg (35.0-45.0); BG PH 7.433 (7.350-7.450); BG PO2 124.7 mmHg (75.0-100.0); BG SAMPLE SITE RIGHT RADIAL; BG TIDAL VOLUME(mL) 500 mL; BG TOTAL HEMOGLOBIN 10.9 g/dL (12.0-18.0); BG VENT MODE VENT - A/C; BG VENT RATE 12 set
[2018-03-26] MEDS: PANTOPRAZOLE SODIUM 40 MG/VIAL IV SCH ×2 (09:50→21:13)
[2018-03-26] MEDS: ACETYLCYSTEINE 100MG/ML 10% VIAL 4ML INH SCH (14:02)
[2018-03-27] VITALS (40 sets, daily range): BP systolic 101–160; BP diastolic 62–100
[2018-03-27] MEDS: ACETYLCYSTEINE 100MG/ML 10% VIAL 4ML INH SCH ×3 (00:24→14:06)
[2018-03-27] MEDS: IPRATROPIUM/ALBUTEROL 0.5-3(2.5)MG/3ML NEB HHN SCH ×4 (00:24→20:42)
[2018-03-27] MEDS: OCTREOTIDE 1,000 MCG in SODIUM CHLORIDE 0.9% 98 ML IV SCH ×2 (00:39→00:46)
[2018-03-27] MEDS: DEXT 5%/0.45% NACL KCL 20MEQ/L 1,000 ML IV SCH ×2 (04:21→14:41)
[2018-03-27] MEDS: PIPERACILLIN/TAZ 3.375G PREMIX 50 ML IV SCH ×3 (04:27→20:30)
[2018-03-27] MEDS: HYDRALAZINE 20MG/ML VIAL IV SCH ×4 (06:00→17:03)
[2018-03-27 06:19] LABS: BASOPHILS % 0.6 % (0.0-2.0); EOSINOPHILS % 0.9 % (0.0-5.0); HEMATOCRIT. 33.8 % (36.0-48.0); HEMOGLOBIN. 10.8 g/dL (12.0-16.0); LYMPHOCYTES % 9.5 % (20.0-50.0); MEAN CORPUSCULAR HEMOGLOBIN 30.1 pg (28.0-32.0); MEAN CORPUSCULAR VOLUME 93.8 fL (81.0-99.0); MEAN PLATELET VOLUME 9.8 fl (7.4-10.4); MONOCYTES % 9.1 % (2.0-8.0); NEUTROPHILS % 79.9 % (40.0-76.0); PLATELET 248 x1000/uL (130-400); RED BLOOD CELL COUNT 3.61 mill/uL (4.2-5.4); RED CELL DISTRIBUTION WIDTH 19.5 % (11.6-14.6)
[2018-03-27 06:21] LABS: CHLORIDE 109 mEq/L (98-107)
[2018-03-27] MEDS: PANTOPRAZOLE SODIUM 40 MG/VIAL IV SCH ×2 (08:30→21:56)
[2018-03-27] MEDS ORDERED: LACTULOSE 300 ML in WATER FOR IRRIGATION,STERILE 700 ML IR NR (10:30)
[2018-03-27] MEDS ORDERED: FUROSEMIDE 40MG/4ML VIAL IVP NR (16:00)
[2018-03-28] VITALS (39 sets, daily range): BP systolic 92–155; BP diastolic 64–105
[2018-03-28] MEDS: ACETYLCYSTEINE 100MG/ML 10% VIAL 4ML INH SCH ×3 (00:52→15:36)
[2018-03-28] MEDS: IPRATROPIUM/ALBUTEROL 0.5-3(2.5)MG/3ML NEB HHN SCH ×4 (00:52→20:05)
[2018-03-28] MEDS: HYDRALAZINE 20MG/ML VIAL IV SCH ×4 (06:00→16:59)
[2018-03-28 06:07] LABS: BASOPHILS % 0.6 % (0.0-2.0); EOSINOPHILS % 2.3 % (0.0-5.0); HEMATOCRIT. 27.5 % (36.0-48.0); HEMOGLOBIN. 9.1 g/dL (12.0-16.0); LYMPHOCYTES % 15.3 % (20.0-50.0); MEAN CORPUSCULAR HEMOGLOBIN 30.5 pg (28.0-32.0); MEAN CORPUSCULAR VOLUME 92.3 fL (81.0-99.0); MEAN PLATELET VOLUME 9.8 fl (7.4-10.4); MONOCYTES % 8.6 % (2.0-8.0); NEUTROPHILS % 73.2 % (40.0-76.0); PLATELET 167 x1000/uL (130-400); RED BLOOD CELL COUNT 2.98 mill/uL (4.2-5.4); RED CELL DISTRIBUTION WIDTH 19.2 % (11.6-14.6)
[2018-03-28 06:11] LABS: CHLORIDE 109 mEq/L (98-107)
[2018-03-28 08:28] LABS: BG BASE EXCESS -9.6 mmol/L (-2.0-2.0); BG CARBOXYHEMOGLOBIN 0.8 % (0.5-1.5); BG DEOXYHEMOGLOBIN 1.2 % (0.0-5.0); BG FRACTION INSPIRED OXYGEN 30; BG METHEMOGLOBIN 0.4 % (0.0-1.5); BG OXYGEN SATURATION 98.8 % (92.0-98.5); BG OXYHEMOGLOBIN 97.6 % (94.0-97.0); BG PCO2 19.7 mmHg (35.0-45.0); BG PH 7.437 (7.350-7.450); BG SAMPLE SITE RIGHT RADIAL; BG TIDAL VOLUME(mL) 500 mL; BG TOTAL HEMOGLOBIN 9.3 g/dL (12.0-18.0); BG VENT MODE VENT - A/C; BG VENT RATE 12 set
[2018-03-28] MEDS: DEXT 5%/0.45% NACL KCL 20MEQ/L 1,000 ML IV SCH ×2 (08:49→21:30)
[2018-03-28] MEDS: PANTOPRAZOLE SODIUM 40 MG/VIAL IV SCH ×2 (08:50→21:26)
[2018-03-28] MEDS: OCTREOTIDE 1,000 MCG in SODIUM CHLORIDE 0.9% 98 ML IV SCH (19:00)
[2018-03-29] VITALS (24 sets, daily range): BP systolic 102–142; BP diastolic 71–90
[2018-03-29] MEDS: ACETYLCYSTEINE 100MG/ML 10% VIAL 4ML INH SCH ×5 (00:15→14:45)
[2018-03-29] MEDS: HYDRALAZINE 20MG/ML VIAL IV SCH ×5 (01:00→23:34)
[2018-03-29] MEDS: IPRATROPIUM/ALBUTEROL 0.5-3(2.5)MG/3ML NEB HHN SCH ×4 (01:29→20:02)
[2018-03-29 05:42] LABS: HEMATOCRIT 29.9 % (36.0-48.0); HEMOGLOBIN 9.8 g/dL (12.0-16.0); MEAN CORPUSCULAR HEMOGLOBIN 30.7 pg (28.0-32.0); MEAN CORPUSCULAR VOLUME 93.6 fL (81.0-99.0); PLATELET 197 x1000/uL (130-400)
[2018-03-29 07:19] LABS: BG BASE EXCESS -10.2 mmol/L (-2.0-2.0); BG CARBOXYHEMOGLOBIN 0.2 % (0.5-1.5); BG HCO3 ACT 10.8 mmol/L (22.0-26.0); BG METHEMOGLOBIN 0.1 % (0.0-1.5); BG OXYHEMOGLOBIN 97.7 % (94.0-97.0); BG PCO2 14.4 mmHg (35.0-45.0); BG PH 7.492 (7.350-7.450); BG PO2 106.9 mmHg (75.0-100.0); BG SAMPLE SITE RIGHT RADIAL; BG TIDAL VOLUME(mL) 500 mL; BG TOTAL HEMOGLOBIN 10.4 g/dL (12.0-18.0); BG VENT MODE VENT - A/C; BG VENT RATE 12 set
[2018-03-29] MEDS: PANTOPRAZOLE SODIUM 40 MG/VIAL IV SCH ×2 (09:19→20:29)
[2018-03-29] MEDS ORDERED: FUROSEMIDE 40MG/4ML VIAL IVP SCH (11:00)
[2018-03-29] MEDS: DEXT 5%/0.45% NACL KCL 20MEQ/L 1,000 ML IV SCH ×2 (11:45→18:01)
[2018-03-29] MEDS: LACTULOSE 20G/30ML UDC PO SCH ×2 (14:00→15:23)
[2018-03-29] MEDS: OCTREOTIDE 1,000 MCG in SODIUM CHLORIDE 0.9% 98 ML IV SCH (15:00)
[2018-03-29 16:42] LABS: CHLORIDE 109 mEq/L (98-107)
[2018-03-29] MEDS ORDERED: LACTULOSE 300 ML in WATER FOR IRRIGATION,STERILE 700 ML IR NR (17:00)
[2018-03-30] VITALS (23 sets, daily range): BP systolic 97–115; BP diastolic 61–81
[2018-03-30] MEDS: IPRATROPIUM/ALBUTEROL 0.5-3(2.5)MG/3ML NEB HHN SCH ×4 (00:19→20:25)
[2018-03-30] MEDS: HYDRALAZINE 20MG/ML VIAL IV SCH ×4 (05:06→23:45)
[2018-03-30 06:00] LABS: HEMATOCRIT 30.6 % (36.0-48.0); HEMOGLOBIN 10.1 g/dL (12.0-16.0); MEAN CORPUSCULAR HEMOGLOBIN 30.8 pg (28.0-32.0); MEAN CORPUSCULAR VOLUME 93.5 fL (81.0-99.0); PLATELET 266 x1000/uL (130-400); RED BLOOD CELL COUNT 3.27 mill/uL (4.2-5.4); RED CELL DISTRIBUTION WIDTH 20.2 % (11.6-14.6)
[2018-03-30 06:15] LABS: CHLORIDE 110 mEq/L (98-107)
[2018-03-30 06:33] LABS: PHOSPHORUS 2.2 mg/dL (2.5-4.9)
[2018-03-30] MEDS ORDERED: SODIUM BICARBONATE 8.4% 1 MEQ/ML 50ML SYR IV NR (07:30)
[2018-03-30] MEDS ORDERED: MAGNESIUM 4 G PREMIX 100 ML IV NR (08:00)
[2018-03-30] MEDS: ACETYLCYSTEINE 100MG/ML 10% VIAL 4ML INH SCH ×2 (08:04→13:53)
[2018-03-30] MEDS ORDERED: SODIUM BICARBONATE 100 MEQ in DEXT 5%/0.45% NACL 1000ML 1,000 ML IV SCH (08:30)
[2018-03-30] MEDS: PANTOPRAZOLE SODIUM 40 MG/VIAL IV SCH ×2 (08:43→20:17)
[2018-03-30 08:52] LABS: BG BASE EXCESS -10.5 mmol/L (-2.0-2.0); BG CARBOXYHEMOGLOBIN 1.1 % (0.5-1.5); BG DEOXYHEMOGLOBIN 1.4 % (0.0-5.0); BG FRACTION INSPIRED OXYGEN 30; BG HCO3 ACT 12.4 mmol/L (22.0-26.0); BG METHEMOGLOBIN 0.3 % (0.0-1.5); BG OXYGEN SATURATION 98.6 % (92.0-98.5); BG OXYHEMOGLOBIN 97.2 % (94.0-97.0); BG PCO2 19.8 mmHg (35.0-45.0); BG PH 7.413 (7.350-7.450); BG PO2 126.1 mmHg (75.0-100.0); BG SAMPLE SITE RIGHT RADIAL; BG TIDAL VOLUME(mL) 500 mL; BG TOTAL HEMOGLOBIN 9.7 g/dL (12.0-18.0); BG VENT MODE VENT - A/C; BG VENT RATE 12 set
[2018-03-30] MEDS ORDERED: DEXT 5% WATER + KCL 20MEQ/L 1,000 ML IV SCH (09:15)
[2018-03-30] MEDS ORDERED: POTASSIUM CHLORIDE IV SCH (10:00)
[2018-03-30] MEDS ORDERED: SODIUM BICARBONATE IV SCH (10:00)
[2018-03-30] MEDS ORDERED: DEXTROSE 5% IV SCH (10:00)
[2018-03-30] MEDS ORDERED: WATER IV SCH (10:00)
[2018-03-30] MEDS ORDERED: POTASSIUM PHOS,M-BASIC-D-BASIC 10 MMOL in DEXT 5% WATER 246.6667 ML IV NR (10:30)
[2018-03-30 10:55] LABS: SODIUM URINE RANDOM < 5 mEq/L
[2018-03-30] MEDS ORDERED: LACTULOSE 300 ML in WATER FOR IRRIGATION,STERILE 700 ML IR NR (15:00)
[2018-03-30 19:20] LABS: PHOSPHORUS 2.7 mg/dL (2.5-4.9)
[2018-03-30 20:37] LABS: HEMATOCRIT 28.7 % (36.0-48.0); HEMOGLOBIN 9.5 g/dL (12.0-16.0)
[2018-03-31] VITALS (24 sets, daily range): BP systolic 90–154; BP diastolic 57–96
[2018-03-31] MEDS: IPRATROPIUM/ALBUTEROL 0.5-3(2.5)MG/3ML NEB HHN SCH ×4 (00:59→20:16)
[2018-03-31] MEDS: ACETYLCYSTEINE 100MG/ML 10% VIAL 4ML INH SCH ×2 (00:59→14:12)
[2018-03-31] MEDS: HYDRALAZINE 20MG/ML VIAL IV SCH (05:27)
[2018-03-31 05:41] LABS: BASOPHILS % 0.4 % (0.0-2.0); EOSINOPHILS % 0.6 % (0.0-5.0); HEMATOCRIT. 29.5 % (36.0-48.0); HEMOGLOBIN. 9.7 g/dL (12.0-16.0); LYMPHOCYTES % 14.1 % (20.0-50.0); MEAN CORPUSCULAR HEMOGLOBIN 30.5 pg (28.0-32.0); MEAN PLATELET VOLUME 9.3 fl (7.4-10.4); MONOCYTES % 7.2 % (2.0-8.0); NEUTROPHILS % 77.7 % (40.0-76.0); PLATELET 326 x1000/uL (130-400); RED BLOOD CELL COUNT 3.18 mill/uL (4.2-5.4); RED CELL DISTRIBUTION WIDTH 20.5 % (11.6-14.6)
[2018-03-31 05:49] LABS: INR 1.7; PROTHROMBIN TIME 16.5 sec (9.1-11.1)
[2018-03-31 05:56] LABS: CHLORIDE 108 mEq/L (98-107)
[2018-03-31 06:03] LABS: PHOSPHORUS 2.2 mg/dL (2.5-4.9)
[2018-03-31 07:29] LABS: BG BASE EXCESS -7.9 mmol/L (-2.0-2.0); BG CARBOXYHEMOGLOBIN 0.1 % (0.5-1.5); BG DEOXYHEMOGLOBIN 1.9 % (0.0-5.0); BG FRACTION INSPIRED OXYGEN 30; BG HCO3 ACT 13.3 mmol/L (22.0-26.0); BG METHEMOGLOBIN 0.3 % (0.0-1.5); BG OXYGEN SATURATION 98.1 % (92.0-98.5); BG OXYHEMOGLOBIN 97.7 % (94.0-97.0); BG PCO2 17.3 mmHg (35.0-45.0); BG PH 7.504 (7.350-7.450); BG PO2 105.8 mmHg (75.0-100.0); BG SAMPLE SITE RIGHT RADIAL; BG TIDAL VOLUME(mL) 500 mL; BG TOTAL HEMOGLOBIN 10.2 g/dL (12.0-18.0); BG VENT MODE VENT - A/C; BG VENT RATE 12 set
[2018-03-31] MEDS: PANTOPRAZOLE SODIUM 40 MG/VIAL IV SCH ×2 (08:19→20:46)
[2018-03-31] MEDS: HYDROMORPHONE HCL/PF 2MG/ML CPJ IV PRN ×2 (08:22→15:52)
[2018-03-31] MEDS ORDERED: HYDRALAZINE 20MG/ML VIAL IV PRN (09:15)
[2018-03-31] MEDS ORDERED: POTASSIUM PHOS,M-BASIC-D-BASIC 10 MMOL in DEXT 5% WATER 246.6667 ML IV NR (09:30)
[2018-03-31] MEDS ORDERED: MAGNESIUM 2 G PREMIX 50 ML IV NR (09:30)
[2018-03-31] MEDS ORDERED: SODIUM BICARBONATE 50 MEQ in DEXTROSE 5% WATER 1,000 ML IV SCH (14:00)
[2018-03-31] MEDS ORDERED: SODIUM PHOS,M-BASIC-D-BASIC 10 MM in DEXT 5% WATER 246.6667 ML IV NR (14:00)
[2018-03-31] MEDS: NYSTATIN POWDER 15GM TOP SCH (21:06)
[2018-04-01] VITALS (23 sets, daily range): BP systolic 92–111; BP diastolic 55–72
[2018-04-01] MEDS: IPRATROPIUM/ALBUTEROL 0.5-3(2.5)MG/3ML NEB HHN SCH ×4 (02:00→20:22)
[2018-04-01 05:31] LABS: BASOPHILS % 0.2 % (0.0-2.0); EOSINOPHILS % 1.3 % (0.0-5.0); HEMATOCRIT. 27.9 % (36.0-48.0); HEMOGLOBIN. 9.2 g/dL (12.0-16.0); LYMPHOCYTES % 8.8 % (20.0-50.0); MEAN CORPUSCULAR HEMOGLOBIN 30.7 pg (28.0-32.0); MEAN CORPUSCULAR VOLUME 93.4 fL (81.0-99.0); MEAN PLATELET VOLUME 9.2 fl (7.4-10.4); MONOCYTES % 8.5 % (2.0-8.0); NEUTROPHILS % 81.2 % (40.0-76.0); PLATELET 227 x1000/uL (130-400); RED BLOOD CELL COUNT 2.99 mill/uL (4.2-5.4); RED CELL DISTRIBUTION WIDTH 19.7 % (11.6-14.6)
[2018-04-01 05:33] LABS: CHLORIDE 107 mEq/L (98-107)
[2018-04-01] MEDS: NYSTATIN POWDER 15GM TOP SCH ×3 (09:12→17:00)
[2018-04-01] MEDS: PANTOPRAZOLE SODIUM 40 MG/VIAL IV SCH ×2 (09:12→20:47)
[2018-04-01 11:22] LABS: BG BASE EXCESS -5.6 mmol/L (-2.0-2.0); BG CARBOXYHEMOGLOBIN 0.4 % (0.5-1.5); BG DEOXYHEMOGLOBIN 1.7 % (0.0-5.0); BG FRACTION INSPIRED OXYGEN 30; BG HCO3 ACT 17.6 mmol/L (22.0-26.0); BG METHEMOGLOBIN 0.4 % (0.0-1.5); BG OXYGEN SATURATION 98.3 % (92.0-98.5); BG OXYHEMOGLOBIN 97.5 % (94.0-97.0); BG PCO2 26.5 mmHg (35.0-45.0); BG PO2 112.2 mmHg (75.0-100.0); BG PRESSURE SUPPORT 8; BG SAMPLE SITE RIGHT RADIAL; BG TOTAL HEMOGLOBIN 9.2 g/dL (12.0-18.0); BG VENT MODE VENT - CPAP
[2018-04-02] VITALS (22 sets, daily range): BP systolic 97–129; BP diastolic 60–106
[2018-04-02] MEDS: IPRATROPIUM/ALBUTEROL 0.5-3(2.5)MG/3ML NEB HHN SCH ×3 (01:50→15:04)
[2018-04-02 07:16] LABS: HEMATOCRIT. 24.6 % (36.0-48.0); HEMOGLOBIN. 8.4 g/dL (12.0-16.0); MEAN CORPUSCULAR HEMOGLOBIN 31.2 pg (28.0-32.0); MEAN CORPUSCULAR VOLUME 91.7 fL (81.0-99.0); MEAN PLATELET VOLUME 9.5 fl (7.4-10.4); PLATELET 184 x1000/uL (130-400); RED BLOOD CELL COUNT 2.68 mill/uL (4.2-5.4); RED CELL DISTRIBUTION WIDTH 19.8 % (11.6-14.6)
[2018-04-02 07:29] LABS: CHLORIDE 107 mEq/L (98-107)
[2018-04-02 07:34] LABS: PHOSPHORUS 2.5 mg/dL (2.5-4.9)
[2018-04-02 07:35] LABS: INR 1.6; PROTHROMBIN TIME 16.2 sec (9.1-11.1)
[2018-04-02 07:50] LABS: PLATELET ESTIMATE NORMAL
[2018-04-02] MEDS: PANTOPRAZOLE SODIUM 40 MG/VIAL IV SCH (09:31)
[2018-04-02] MEDS: NYSTATIN POWDER 15GM TOP SCH ×3 (10:18→17:51)
[2018-04-02] MEDS: LACTULOSE 20G/30ML UDC PO SCH ×2 (14:36→17:51)
[2018-04-02] MEDS ORDERED: LACTULOSE 20G/30ML UDC PO SCH (17:00)
[2018-04-04] MEDS ORDERED: SODIUM BICARBONATE 100 MEQ in DEXTROSE 5% WATER 1,000 ML IV SCH (07:45)
== END 2018-04-02 17:45 | disposition short-term general hospital (02) | DRG 280 ==
LOC: ER 15:42 → 5EST 19:16 → ENRESERV 19:47 → CVICU 03-20 14:20
PROVIDERS: ADMIT Internal Medicine; ATTEND Internal Medicine
PROC: 5A1955Z Respiratory Ventilation, Greater than 96 Consecutive Hours (ICD-10-PCS; 2018-03-20)
PROC: 30233L1 Transfusion of Nonautologous Fresh Plasma into Peripheral Vein, Percutaneous Approach (ICD-10-PCS; 2018-03-20)
PROC: 30233N1 Transfusion of Nonautologous Red Blood Cells into Peripheral Vein, Percutaneous Approach (ICD-10-PCS; 2018-03-20)
PROC: 06L38CZ Occlusion of Esophageal Vein with Extraluminal Device, Via Natural or Artificial Opening Endoscopic (ICD-10-PCS; 2018-03-20)
PROC: 30233K1 Transfusion of Nonautologous Frozen Plasma into Peripheral Vein, Percutaneous Approach (ICD-10-PCS; 2018-03-21)
PROC: 02HV33Z Insertion of Infusion Device into Superior Vena Cava, Percutaneous Approach (ICD-10-PCS; 2018-03-21)
PROC: B5181ZA Fluoroscopy of Superior Vena Cava using Low Osmolar Contrast, Guidance (ICD-10-PCS; 2018-03-21)
PROC: B548ZZA Ultrasonography of Superior Vena Cava, Guidance (ICD-10-PCS; 2018-03-21)
PROC: 0W9G3ZZ Drainage of Peritoneal Cavity, Percutaneous Approach (ICD-10-PCS; 2018-03-21)
PROC: 06L38CZ Occlusion of Esophageal Vein with Extraluminal Device, Via Natural or Artificial Opening Endoscopic (ICD-10-PCS; principal; 2018-03-23 12:45)
DX: K70.31 Alcoholic cirrhosis of liver with ascites (principal); J96.00 Acute respiratory failure, unspecified whether with hypoxia or hypercapnia; I81 Portal vein thrombosis; J69.0 Pneumonitis due to inhalation of food and vomit; G93.41 Metabolic encephalopathy; E43 Unspecified severe protein-calorie malnutrition; I85.11 Secondary esophageal varices with bleeding; L89.150 Pressure ulcer of sacral region, unstageable; E87.4 Mixed disorder of acid-base balance; C22.0 Liver cell carcinoma; I50.9 Heart failure, unspecified; D68.4 Acquired coagulation factor deficiency; E87.8 Other disorders of electrolyte and fluid balance, not elsewhere classified; K76.6 Portal hypertension; E83.39 Other disorders of phosphorus metabolism; E83.42 Hypomagnesemia; D64.9 Anemia, unspecified; B18.2 Chronic viral hepatitis C; E87.6 Hypokalemia; F10.10 Alcohol abuse, uncomplicated; L89.300 Pressure ulcer of unspecified buttock, unstageable; F12.90 Cannabis use, unspecified, uncomplicated; F17.200 Nicotine dependence, unspecified, uncomplicated; F20.9 Schizophrenia, unspecified; I11.0 Hypertensive heart disease with heart failure; K31.9 Disease of stomach and duodenum, unspecified; K44.9 Diaphragmatic hernia without obstruction or gangrene; K72.90 Hepatic failure, unspecified without coma; K80.20 Calculus of gallbladder without cholecystitis without obstruction; N39.0 Urinary tract infection, site not specified; Z68.25 Body mass index [BMI] 25.0-25.9, adult; Z78.1 Physical restraint status
CPT/HCPCS: 36415; 36569; 36600; 49083; 70551; 71045; 74176; 76705; 76857; 77001; 80048; 80076; 80305; 82105; 82140; 82150; 82270; 82375; 82805; 82962; 83735; 83880; 84100; 84134; 84156; 84300; 84478; 84484; 85014; 85018; 85027; 85049; 86850; 86900; 86920; 86927; 92610; 93005; 93970; 94002; 94003; 94640; 96365; 96366; 96375; 97162; 97166; 99291; A6261; C1725; C9113; J0360; J1170; J1940; J2060; J2250; J2270; J2354; J2405; J2543; J2704; J3010; J3430; J3475; J3480; J3490; J7030; J7040; J7050; J7060; J7070; J7608; J7620; P9016; P9017; A4315